=== PATIENT | female | born 2005 | race Hispanic/Latino ===

== ENCOUNTER 2025-06-14 17:12 | Emergency (ER) | payer BC ==
[2025-06-14 19:06] LABS: #Basophils 0.08 10x3/uL (0.0-0.2); #Eosinophils Less than 0.03 10x3/uL (0.0-0.7); #Monocytes 0.51 10x3/uL (0.11-0.59); #Neutrophils 7.42 10x3/uL (1.40-6.50); %Basophils 0.9 % (0.0-1.0); %Eosinophils 0.2 % (0.0-10.0); %Lymphocytes 8.4 % (28.0-48.0); %Monocytes 5.8 % (0.0-4.0); %Neutrophils 84.4 % (31.0-61.0); Hematocrit 42.5 % (36.0-47.0); Hemoglobin 14.1 g/dL (12.0-16.0); Mean Corpuscular Hemoglobin 30.5 pg (25.0-35.0); Mean Corpuscular Volume 91.8 fL (78.0-98.0); Platelet Count 259 10x3/uL (130-400); Red Blood Cell (RBC) Count 4.63 mill/uL (4.00-5.20); White Blood Cell (WBC) Count 8.80 10x3/uL (4.8-10.8)
[2025-06-14 19:22] LABS: ALT (SGPT) 14 U/L (Less than 34); AST (SGOT) 18 U/L (11-34); Albumin 4.3 g/dL (3.1-4.5); Alkaline Phosphatase 67 U/L (40-100); Anion Gap 14 mmol/L (10-20); BUN (Urea Nitrogen) 6 mg/dL (7.0-18.7); Bilirubin, Total 1.4 mg/dL (0.3-1.2); Calc. Creatinine Clearance 0 mL/min (70-130); Calcium 9.1 mg/dL (7.8-10.44); Carbon Dioxide 20 mmol/L (22-29); Chloride 107 mmol/L (98-107); Globulin 3.0 g/dL (2.4-3.5); Glucose 88 mg/dL (70-105); Lipase 25 U/L (8-78); Potassium 4.3 mmol/L (3.5-5.1); Sodium 137 mmol/L (136-145)
[2025-06-14 19:24] LABS: Troponin I 0.012 ng/mL (< 0.028)
[2025-06-14 19:38] LABS: BHCG - Serum Negative (NEGATIVE); Pregs Control Background? CLEAR/WHITE (CLR/WHITE); Pregs Control Bar Appear? YES (CONTROL BAR)
[2025-06-14 20:10] LABS: Bacteria/HPF None Seen HPF (None Seen); CAUTI Indications for Culture Dysuria,urgency,freq; Glucose, Urine (Dipstick) Normal (Negative); Leukocyte Negative Leu/uL (Negative); Protein, Urine (Dipstick) 10 mg/dL (Neg-Trace); Specific Gravity, Urine 1.024 (1.002-1.036)
[2025-06-14 20:19] LABS: Urine Culture Reflex No No
== END 2025-06-14 20:56 | disposition home or self-care (01) ==
LOC: ERS 17:12
DX: R55 Syncope and collapse (principal); F17.290 Nicotine dependence, other tobacco product, uncomplicated
CPT/HCPCS: 36415; 80053; 81001; 83690; 84484; 84703; 85025; 93005